=== PATIENT | female | born 1940 | race Caucasian/White ===

== ENCOUNTER 2016-12-08 05:54 | Inpatient (IN) | payer MEDICARE, OTHER ==
--- NOTE | 2016-12-07 16:20 | HP ---
DATE OF ADMISSION: 12/08/2016 This is requested by Dr. Michael Matta. She is scheduled for surgery tomorrow morning for a right total knee replacement scheduled for 12/08/2016. The patient is scheduled for medication technician surgery. Please add this note to her chart. This patient was seen in our office for preop clearance. She was cleared for surgery. We checked on her status today, the day prior to surgery and the patient is stable and is able to proceed with surgery as planned by Dr. Matta. If there are any further questions, please do not hesitate to contact me. Dictated By: CECILIA GIANG/DYANA Conf#: [id number] DID#: [id number]
[~2016-12-08] VITALS: Ht 142.2 cm; Wt 69.0 kg
[2016-12-08] VITALS (23 sets, daily range): BP systolic 69–149; BP diastolic 43–78; PULSE 62–92; RESP 12–19; Ht 142.2 cm; Wt 69.0 kg
[~2016-12-08 05:54] MED LIST: CALC-84 PO; IBUP400T22 PO; TYL500 PO; ZOLP5TAB PO
[2016-12-08] MEDS ORDERED: POLYMYXIN/BACITRACIN 1L IRRIG ONE (07:22)
[2016-12-08] MEDS ORDERED: LIDOCAINE 2% (SDV) 5 ML INJ ONE (07:53)
[2016-12-08] MEDS ORDERED: PROPOFOL 20 ML ONE (07:53)
[2016-12-08] MEDS ORDERED: METOCLOPRAMIDE 10 MG INJ ONE (07:54)
[2016-12-08] MEDS ORDERED: ONDANSETRON 4 MG INJ ONE (07:54)
[2016-12-08] MEDS ORDERED: morphine SULFATE/PF (10 MG/10 ML) INJ ONE (08:04)
[2016-12-08] MEDS ORDERED: CEFAZOLIN 1 GM INJ ONE (08:06)
[2016-12-08] MEDS ORDERED: ATROPINE 1 MG/10 ML SYRINGE ONE (08:38)
[2016-12-08] MEDS ORDERED: EPHEDrine SULFATE 50 MG/5 ML SYG ONE (08:38)
[2016-12-08] MEDS ORDERED: ONDANSETRON 4 MG INJ IV PRN (09:00)
[2016-12-08] MEDS ORDERED: NALOXONE (0.4 MG/ML) INJ IV PRN (09:00)
[2016-12-08] MEDS ORDERED: DIPHENHYDRAMINE 50 MG INJ IV PRN (09:00)
[2016-12-08] MEDS ORDERED: HYDROmorphONE 1 MG/ML SYG IV PRN (09:00)
[2016-12-08] MEDS ORDERED: BUPIVACAINE 0.5% (SDV) 30 ML INJ ONE (09:25)
[2016-12-08] MEDS: CEFAZOLIN 1 GM/50 ML (PMX) 50 ML IVPB SCH ×2 (12:05→20:41)
--- NOTE | 2016-12-08 12:33 | RADRPT ---
PROCEDURE: CR Right Knee CLINICAL INDICATION: Postop total knee TECHNIQUE: AP and lateral portable views were submitted. COMPARISON: None available FINDINGS: Osseous Structures: The components of the total right knee replacement are well seated. The osseous elements appear intact. Join Spaces: The joint spaces are well maintained. No joint effusion is identified. Soft Tissues: 2 surgical drains have been placed and anterior sherron are evident. IMPRESSION: 1. Well seated total right knee replacement. 2. 2 surgical drains have been placed along with anterior sherron. Physician Osiel Date Time Electronically viewed and signed by Pranav Alcantara Physician on 12/08/2016 12:33 RH/
[2016-12-08] MEDS ORDERED: ACETAMINOPHEN 500 MG TAB PO PRN (15:30)
[2016-12-08] MEDS: CALCIUM/VITAMIN D (500/200) TAB PO SCH ×2 (16:00→20:44)
--- NOTE | 2016-12-08 16:32 | HP ---
DATE OF ADMISSION: 12/08/2016 CHIEF COMPLAINT AND HISTORY OF PRESENT ILLNESS: The patient is a 76-year-old female with a history of bilateral knee osteoarthritis. Patient underwent left total knee replacement back in March 2014. The patient is being followed by Dr. Zarate as an outpatient and was referred to Dr. Vinh Matta for continued right knee pain and patient was brought in to hospital today and underwent right tota l knee replacement. The patient does not have any known history of hypertension, diabetes or CHF. No history of ___, no history of CVA. The denied any chest pain and is breathing comfortably. The patient is awake, alert, and responsive and denies any numbness, tingling, or weakness in any extre mity, no abdominal pain, no reported vomiting. No reported cough, wheezing, chest pain or shortness of breath. REVIEW OF SYSTEMS: A total of 10 systems were reviewed and all pertinent positive and negative find ings have been described in the HPI. PAST SURGICAL HISTORY: As stated above. ALLERGIES: NONE. SOCIAL HISTORY: No smoking, no alcohol. FAMILY HISTORY: Noncontributory. MEDICATIONS PRIOR TO ADMISSION: 1. Tylenol. 2. Ibuprofen. 3. Ambien. 4. Calcium and vitamin D. PHYSICAL EXAMINATION: GENERAL: The patient is conscious, awake, alert. VITAL SIGNS: Temperature 97.6, pulse 71, respirations 18, blood pressure 149/69, O2 saturation 98% on 2 liters nasal cannula. HEENT: Atraumatic, normocephalic. Conjunctivae and lids normal. Oropharynx clear. NECK: No mass, lymph node or thyromegaly. CHEST: Fairly clear. No use of accessory muscles. CARDIOVASCULAR: S1, S2 normal. No murmur. ABDOMEN: Soft, nondistended, nontender. EXTREMITIES: No pedal edema. Pedal pulses palpable. SKIN: Without acute rash. NEUROLOGIC: The patient is awake, alert, follows simple commands. No gross focal deficit, although detailed neurological examination was deferred due to recent surgery. IMPRESSION: 1. Right knee osteoarthritis, status post right total knee replacement. 2. History of left knee osteoarthritis status post left total knee replacement back in 2013. PLAN: Patient admitted on medical floor. Patient will be started on clear liquid diet, which will be advanced as tolerated. The patient will receive IV cefazolin as per protocol. The patient will be given IV ____ and has been started on aspirin 325 mg b.i.d. for DVT prophylaxis. The patient richardson s epidural catheter. The patient is getting epidural Duramorph for pain control. The patient also on Percocet q.4h. p.r.n. for pain control. The patient will have followup labs in the morning. We will continue to follow her postoperatively. Dictated By: AGUSTIN HILL/DYANA Conf#: [id number] DID#: [id number] CC: NETTE MATTA MD;*EndCC*
[2016-12-08] MEDS: LACTATED RINGER'S 1,000 ML IV SCH (17:09)
[2016-12-08] MEDS: morphine 2 MG INJ IV PRN (19:07)
[2016-12-08] MEDS: ZOLPIDEM 5 MG TAB PO PRN (20:44)
[2016-12-08] MEDS: OXYCODONE/ACETAMINOPHEN (5/325) TAB PO PRN (22:37)
[2016-12-09] MEDS: OXYCODONE/ACETAMINOPHEN (5/325) TAB PO PRN ×4 (02:14→16:57)
[2016-12-09] MEDS: morphine 2 MG INJ IV PRN (03:37)
[2016-12-09] MEDS: CEFAZOLIN 1 GM/50 ML (PMX) 50 ML IVPB SCH (04:43)
[2016-12-09] MEDS: LACTATED RINGER'S 1,000 ML IV SCH ×2 (04:45)
[2016-12-09 05:12] LABS: ADD SCAN DIFF NO
[2016-12-09 05:35] LABS: POTASSIUM 3.6 mmol/L (3.5-5.1)
[2016-12-09 05:38] LABS: CREATININE 0.6 mg/dl (0.44-1.00)
[2016-12-09 05:39] LABS: BASOPHILS % 0.3 % (0.0-2.0); CALCIUM 7.9 mg/dl (8.4-10.2); EOSINOPHILS # 0.1 10^3/ul (0.0-0.5); HEMATOCRIT 32.4 % (37.0-47.0); HEMOGLOBIN 10.2 g/dl (12.0-16.0); LYMPHOCYTES # 1.5 10^3/ul (0.8-2.9); LYMPHOCYTES % 17.2 % (15.0-51.0); MEAN CORPUSCULAR HEMOGLOBIN 28.8 pg (29.0-33.0); MEAN CORPUSCULAR HGB CONC 31.5 g/dl (32.0-37.0); MEAN CORPUSCULAR VOLUME 91.5 fl (82.0-101.0); MEAN PLATELET VOLUME 11.1 fl (7.4-10.4); MONOCYTE # 0.8 10^3/ul (0.3-0.9); MONOCYTES % 9.7 % (0.0-11.0); NEUTROPHIL # 6.2 10^3/ul (1.6-7.5); NEUTROPHILS % 71.5 % (39.0-77.0); PLATELET COUNT 177 10^3/UL (140-415); RED BLOOD COUNT 3.54 10^6/ul (4.20-5.40); RED CELL DISTRIBUTION WIDTH 13.2 % (11.5-14.5); WHITE BLOOD COUNT 8.7 10^3/ul (4.8-10.8)
[2016-12-09 07:50] VITALS: BP 146/70; RESP 18
[2016-12-09] MEDS: DOCUSATE SODIUM 100 MG CAP PO SCH ×2 (08:57→20:09)
[2016-12-09] MEDS: ASPIRIN (EC) 325 MG TAB PO SCH ×2 (08:57→20:08)
[2016-12-09] MEDS: CALCIUM/VITAMIN D (500/200) TAB PO SCH (08:57)
--- NOTE | 2016-12-09 17:07 | PN ---
Date/Time of Note Date/Time of Note DATE: 12/09/16 TIME: 17:05 Assessment/Plan VTE Prophylaxis VTE Prophylaxis Intervention: other Lines/Catheters IV Catheter Type (from Nrsg): Peripheral IV Urinary Cath still in place: Yes Assessment/Plan Assessment/Plan 1. Right knee osteoarthritis, status post right total knee replacement. - per ortho - epidural Duramorph for pain control. - Percocet q.4h. p.r.n. for pain control. 2. History of left knee osteoarthritis status post left total knee replacement back in 2013. 3. aspirin 325 mg b.i.d. for DVT prophylaxis. MARGIE Shepherd Subjective 24 Hr Interval Summary Eyes: no complaints ENT: no complaints Respiratory: no complaints Cardiovascular: no complaints Gastrointestinal: no complaints Genitourinary: no complaints Musculoskeletal: bone/joint pain Skin: no complaints Neurologic: no complaints Endocrine: no complaints Exam/Review of Systems Vital Signs Vitals Vital Signs Date Time Temp Pulse Resp B/P Pulse Ox O2 Delivery O2 Flow Rate FiO2 12/09/16 07:50 98.6 72 18 146/70 96 12/08/16 20:00 Nasal Cannula 2.0 Intake and Output 12/08/16 12/08/16 12/09/16 15:00 23:00 07:00 Intake Total 2700 ml 300 ml 2410 ml Output Total 1700 ml 400 ml 1310 ml Balance 1000 ml -100 ml 1100 ml Exam Constitutional: alert, oriented, well developed Psych: nl mood/affect Head: atraumatic Eyes: EOMI ENMT: nl external ears & nose Respiratory: clear to auscultation Cardiovascular: nl pulses Gastrointestinal: non-tender, soft Musculoskeletal: other Extremities: normal pulses Neurological: nl mental status, nl speech Skin: other Lymph: nontender Results Result Diagram: 12/09/16 0416 12/09/16 0416 Results 24 hrs Laboratory Tests Test 12/09/16 04:16 Anion Gap 11 Basophils # 0.0 Basophils % 0.3 Blood Urea Nitrogen 10 Calcium Level 7.9 L Carbon Dioxide Level 28 Chloride Level 102 Creatinine 0.60 Eosinophils # 0.1 Eosinophils % 1.0 Glucose Level 95 Hematocrit 32.4 L Hemoglobin 10.2 L Lymphocytes # 1.5 Lymphocytes % 17.2 Mean Corpuscular Hemoglobin 28.8 L Mean Corpuscular Hemoglobin Concent 31.5 L Mean Corpuscular Volume 91.5 Mean Platelet Volume 11.1 H Monocytes # 0.8 Monocytes % 9.7 Neutrophils # 6.2 Neutrophils % 71.5 Nucleated Red Blood Cells # 0.0 Nucleated Red Blood Cells % 0.0 Platelet Count 177 Potassium Level 3.6 Red Blood Count 3.54 L Red Cell Distribution Width 13.2 Sodium Level 137 White Blood Count 8.7 Medications Medications Current Medications Aspirin (Ecotrin) 325 mg BID PO Last administered on 12/09/16 08:57; Admin Dose 325 MG; Start 12/09/16 at 09:00 Docusate Sodium 200 mg 200 mg BID PO Last administered on 12/09/16 08:57; Admin Dose 200 MG; Start 12/09/16 at 09:00; Stop 12/12/16 at 08:59 Lactated Ringer's (Lr) 1,000 ml @ 80 mls/hr [id number] IV Last administered on 04:45; Admin Dose 80 MLS/HR; Start 12/08/16 at 11:30 Oxycodone/ Acetaminophen (Percocet (5/ 325)) 1 tab Q4H PRN PO PAIN Last administered on 12/09/16 16:57; Admin Dose 1 TAB; Start 12/08/16 at 11:30 Zolpidem Tartrate (Ambien) 5 mg HS PRN PO INSOMNIA Last administered on 20:44; Admin Dose 5 MG; Start 12/08/16 at 15:30 Calcium/Vitamin D (Oyster Shell/ Vit-D (500/200)) 1 tab DAILY PO Last administered on 12/09/16 08:57; Admin Dose 1 TAB; Start 12/08/16 at 16:00 Acetaminophen (Tylenol Tab) 500 mg Q4H PRN PO PAIN AND OR ELEVATED TEMP; Start 12/08/16 at 15:30 MISTY ENRIQUEZ Dec 09, 2016 17:06
[2016-12-09 19:25] VITALS: BP 124/58; RESP 18
[2016-12-09] MEDS: ZOLPIDEM 5 MG TAB PO PRN (20:08)
[2016-12-10] MEDS: OXYCODONE/ACETAMINOPHEN (5/325) TAB PO PRN ×5 (03:51→20:52)
[2016-12-10 05:04] LABS: ADD SCAN DIFF NO
[2016-12-10 05:14] LABS: BASOPHILS % 0.2 % (0.0-2.0); EOSINOPHILS # 0.1 10^3/ul (0.0-0.5); EOSINOPHILS % 0.4 % (0.0-7.0); HEMOGLOBIN 10.1 g/dl (12.0-16.0); LYMPHOCYTES # 1.7 10^3/ul (0.8-2.9); MEAN CORPUSCULAR HGB CONC 32.6 g/dl (32.0-37.0); MEAN CORPUSCULAR VOLUME 89.1 fl (82.0-101.0); MEAN PLATELET VOLUME 11.2 fl (7.4-10.4); MONOCYTE # 0.9 10^3/ul (0.3-0.9); MONOCYTES % 7.6 % (0.0-11.0); NEUTROPHIL # 9.2 10^3/ul (1.6-7.5); NEUTROPHILS % 77.4 % (39.0-77.0); PLATELET COUNT 173 10^3/UL (140-415); RED BLOOD COUNT 3.48 10^6/ul (4.20-5.40); RED CELL DISTRIBUTION WIDTH 12.8 % (11.5-14.5); WHITE BLOOD COUNT 11.9 10^3/ul (4.8-10.8)
[2016-12-10 05:36] LABS: POTASSIUM 3.4 mmol/L (3.5-5.1)
[2016-12-10 05:38] LABS: CREATININE 0.55 mg/dl (0.44-1.00)
[2016-12-10 05:39] LABS: CALCIUM 8.7 mg/dl (8.4-10.2)
[2016-12-10 08:14] VITALS: BP 140/63; RESP 20
[2016-12-10] MEDS: ASPIRIN (EC) 325 MG TAB PO SCH ×2 (09:05→20:51)
[2016-12-10] MEDS: DOCUSATE SODIUM 100 MG CAP PO SCH ×2 (09:05→20:52)
[2016-12-10] MEDS: CALCIUM/VITAMIN D (500/200) TAB PO SCH (09:05)
--- NOTE | 2016-12-10 15:34 | OPR ---
DATE OF OPERATION: 12/08/2016 PREOPERATIVE DIAGNOSIS: Severe advanced arthritis of right knee, failed to respond to nonsurgical management. POSTOPERATIVE DIAGNOSIS: Severe advanced arthritis of right knee, failed to respond to nonsurgical management. OPERATION PERFORMED: Arthrotomy of right knee, excision of remnant of menisci, excision of osteophytes, and performing total knee replacement of right knee using size 3 tibial component size E, posterior stabilized femoral component, 10 -mm articular surface and 29 mm in diameter, 8-mm thickness patellar component. All 3 components were cemented. SURGEON: Nette Matta MD GLOBAL SUPPLY CHAIN VICE PRESIDENT: ROZ Stout ANESTHESIOLOGIST: Dr. Landaverde ANESTHESIA: Spinal plus general. DETAIL: She was brought to the operating room, placed in supine position. Intravenous anesthesia administered by anesthesiologist. Patient also received intravenous 2 grams Ancef. Anesthesiologist administered spinal anesthesia and general. She was placed back in supine position. Tourniquet cuff was placed in proximal segment of right thigh. Arrangements for surgery were done, including placing intermittent calf pump on the left leg and placing block and side posts to help us with positioning of the knee throughout the procedure. Following prepping and draping of right lower extremity with tourniquet on the upper right thigh, exsanguination of the knee was done using elastic Esmarch bandage. Pressure was 270 mm. Knee was kept in about 35 to 40 degree of position. She had flexion contracture of right knee of approximately 15 degrees , the flexion range of 95. Knee was stable. Marking pen was used to outline line of incision anterior from midpoint of patella to approximately 2 fingerbreadths above knee cap and down to approximately 2 or 3 fingerbreadths below joint line. Incision was made. Bleeders were controlled. Soft tissue skin and subcutaneous was elevated and extended posteromedially and posterolaterally. Medial parapatellar arthrotomy was done. Patella was reversed. There was approximately 20 to 25 mL of clear yellowish fluid. Washing was done. Knee was inspected. She had advanced arthritis with significant marginal osteophytes of patella. There were also significant marginal osteophytes of femoral condyle and as subsequently observed in the region of patella. Medial joint surface of the femur was completely worn out to subchondral level. Preparation was done to do an osteotomy in following order. A significant portion of anterior fat pad and cruciate ligament were removed. Osteophytes were removed. Releasing was done medially and posteromedially to provide us with full extension while the medial collateral ligament was protected with the Z retractor. Remnant of medial and lateral meniscus was removed. A significant portion of medial meniscus was subluxed posteromedially. Following preparation of the joint, area was cleared for osteotomies. Osteotomy in upper tibia was done while the tibia was subluxed. This was done with use of extramedullary method, removing roughly 1.2 cm of lateral and approximately 4-5 mm of medial tibial plateau. Then, preparation was made to do an intramedullary technique to excise rough anterior distal cut of the femur. By measurement, we chose to use secondary cuts for distal femur to accept size E. This was done after excision of distal femur with intramedullary technique; 5-mm angle with mechanical access. Following completion of cuts, again, additional releases required posteromedially to fit comfortably a 10-mm spacer in extension and flexion. Subsequently, a chamfer cut was used to fit size E right femoral component in place. Following completion of cutting for the femur, with the knee subluxed, upper tibia was finished to accept a stemmed tibial component precoat size 3, which was matching quite well with the femoral component. Patella was measured and was 22 mm in anterior-posterior diameter. Reaming in preparation of patella tibia was done to accept size 29-mm diameter, 8-mm thickness patellar component. Following completion of all surfaces, test component was placed. Knee was stable, had full mobility. Extensive irrigation of all bony surfaces was done, and femoral canal was packed with cancellous bone graft. I failed to mention that also three were done in both condyles of distal femur at the time of doing chamfer cuts. Two batches of methyl methacrylate cement were mixed. This was [place] bone cement and as there was malleable physical condition, cementing of permanent components were done. Initially, femoral component was placed and packed into position. Excess cement was removed. Knee was brought into full extension after placing of tibial component and 10-mm liner, and hyperextension pressurized cement on the femoral and tibial side. Excess cement on tibia was removed. I did cementing of patella component, pressurized in position with a special clamp. Excess cement was removed. Following maturity of cement, excess small component merging were chiseled out. Irrigation was done. Note, 10-mm articular surface then was assembled in position, secured. Knee was washed out, and tourniquet was deflated, and all small bleeders were controlled. We did not encounter any arterial bleeders. Tourniquet time was 90 minutes plus, minus. Following completion of controlling bleeders, closure was done in layers. Joint was closed including femoral side and tibial side and quadriceps tendon with nonabsorbable suture material [id number]. Two Hemovac drains were placed into the wound at the last moment before final closure on the joint. Subcutaneous tissue was assembled together again, closed with 2-0 and 3-0 Vicryl. The skin was closed with metallic sherron. Ha-type dressing was applied. She had no intra- or postop complications. Knee immobilizer was placed before transferring patient to recovery room in satisfactory condition. Dictated By: NETTE MATTA MD, SA/DYANA Conf#: [id number] DID#: [id number]
[2016-12-10 20:14] VITALS: BP 114/56; RESP 18
[2016-12-10] MEDS: ZOLPIDEM 5 MG TAB PO PRN (20:52)
[2016-12-11 07:39] VITALS: BP 135/64; RESP 19
[2016-12-11] MEDS: OXYCODONE/ACETAMINOPHEN (5/325) TAB PO PRN (08:53)
[2016-12-11] MEDS: DOCUSATE SODIUM 100 MG CAP PO SCH ×2 (08:53→20:07)
[2016-12-11] MEDS: CALCIUM/VITAMIN D (500/200) TAB PO SCH (08:53)
[2016-12-11] MEDS: ASPIRIN (EC) 325 MG TAB PO SCH ×2 (08:53→20:07)
[2016-12-11 12:03] LABS: ADD SCAN DIFF NO
[2016-12-11 12:09] LABS: BASOPHILS % 0.4 % (0.0-2.0); EOSINOPHILS # 0.1 10^3/ul (0.0-0.5); EOSINOPHILS % 1.3 % (0.0-7.0); HEMATOCRIT 32.2 % (37.0-47.0); HEMOGLOBIN 10.4 g/dl (12.0-16.0); LYMPHOCYTES # 2.1 10^3/ul (0.8-2.9); MEAN CORPUSCULAR HEMOGLOBIN 29.1 pg (29.0-33.0); MEAN CORPUSCULAR HGB CONC 32.3 g/dl (32.0-37.0); MEAN CORPUSCULAR VOLUME 90.2 fl (82.0-101.0); MEAN PLATELET VOLUME 10.8 fl (7.4-10.4); MONOCYTE # 0.7 10^3/ul (0.3-0.9); MONOCYTES % 6.7 % (0.0-11.0); NEUTROPHIL # 7.4 10^3/ul (1.6-7.5); NEUTROPHILS % 71.2 % (39.0-77.0); PLATELET COUNT 215 10^3/UL (140-415); RED BLOOD COUNT 3.57 10^6/ul (4.20-5.40); WHITE BLOOD COUNT 10.4 10^3/ul (4.8-10.8)
[2016-12-11 12:13] LABS: POTASSIUM 3.3 mmol/L (3.5-5.1)
[2016-12-11 12:16] LABS: CREATININE 0.61 mg/dl (0.44-1.00)
[2016-12-11] MEDS ORDERED: POTASSIUM CHLORIDE 20 MEQ POWDER FOR ORAL SOLN PO ONE (14:30)
[2016-12-11] MEDS: HYDROCODONE/APAP (5/325) TAB PO PRN ×2 (15:41→20:08)
--- NOTE | 2016-12-11 15:57 | DS ---
DATE OF ADMISSION: 12/08/2016 DATE OF DISCHARGE: 12/11/2016 FINAL DIAGNOSES: 1. Severe advanced arthritis of the right knee, status post right total knee replacement. 2. History of left knee osteoarthritis status post left total knee replacement in 2013. BRIEF HISTORY: The patient is a 76-year-old female with a history of bilateral knee osteoarthritis. The patient underwent left total knee replacement back in March 2014. The patient is being followe d by primary care physician, Dr. Zarate as an outpatient and was referred to Dr. Matta, orthopedic surgery for continued right knee pain. Patient was brought to the hospital and underwent right tota l knee replacement and was admitted for further evaluation and management. HOSPITAL COURSE: The patient was given IV cefazolin. The patient was started on aspirin 325 mg p.o . b.i.d. for DVT prophylaxis. The patient was getting epidural Duramorph for pain control and start ed on Percocet. Patient's condition improved. The patient started physical therapy; however, still had significant amount of right knee pain and continues to be at risk for fall. The patient's pain is well controlled with [place] at this point and patient denies any chest pain, denies any shortness of breath, denies any nausea, vomiting. The patient will be discharged to [facility] for further wound care and physical therapy. The patient was getting potassium repl acement for potassium 3.3. The patient will be discharged to [facility]. CONDITION ON DISCHARGE: Hemodynamically stable. ACTIVITY: As patient tolerates. DIET: Regular diet. DISCHARGE MEDICATIONS: 1. Tylenol 500 mg p.o. every 8 hours p.r.n. for mild pain. 2. Aspirin 325 mg p.o. b.i.d. 3. Oyster shell calcium with vitamin D 1 tablet daily. 4. Colace 200 mg p.o. b.i.d. 5. [place] 5/325 mg p.o. 1 tablet every 4 hours p.r.n. for pain. 6. Ambien 5 mg p.o. p.r.n. for insomnia. RECOMMENDATIONS: The patient is instructed to follow up with Dr. Matta in orthopedic surgery consu ltation in 1 to 2 weeks, BMP in 3 days. Interdisciplinary plan of care at [facility]. Interdisciplinary plan of care was established for this patient. Plan of care was discussed with Dr Neha Henry. Dictated By: RAHUL RUGGIERO ASSISTANT BANQUET MANAGER for AGUSTIN HENRY MD SR/NTS Conf#: [id number] DID#: [id number]
--- NOTE | 2016-12-11 16:20 | PN ---
DATE: 12/10/2016 SUBJECTIVE: The patient's postoperative pain has improved. The patient denies any chest pain and i s breathing comfortably, no reported vomiting, no reported fever or chills. Patient's O2 sats have been in the 90s on a couple of liters of supplemental oxygen and no reported wheezing, no reported c ough. PHYSICAL EXAMINATION: GENERAL: The patient is awake, alert. VITAL SIGNS: Temperature 98.4, pulse 87, respirations 20, blood pressure of 140/63, O2 sat 91 to 95 % on 2 liters nasal cannula. HEENT: Conjunctivae and lids normal. Oropharynx clear. NECK: Supple. No mass, no thyromegaly. CHEST: Fairly clear. No use of accessory muscles. CARDIOVASCULAR: S1, S2 normal. No murmur. ABDOMEN: Soft, nondistended, nontender. No palpable mass. No pulsatile mass. EXTREMITIES: No ankle edema. Pedal pulses palpable. SKIN: Without acute rash. NEUROLOGIC: The patient is awake, alert, fairly oriented with no gross focal deficit. LABORATORY DATA: WBC 11.9, hemoglobin 10.1, platelets 173. Sodium 139, potassium 3.4, BUN 6, creat inine 0.5, glucose 118. IMPRESSION: Right knee osteoarthritis status post total right knee replacement. The patient was se en by physical therapy and recommendation is to discharge to shelter facility. Continue CPM machine. Continue aspirin 325 b.i.d. for deep venous thrombosis prophylaxis. Urine culture so far has been negative. The patient is status post preop. PLAN: Further recommendation depends on hospital course. Dictated By: AGUSTIN HILL/DYANA Conf#: [id number] DID#: [id number]
[2016-12-11 20:15] VITALS: BP 122/62; RESP 18
--- NOTE | 2016-12-12 12:05 | DS ---
DATE OF ADMISSION: 12/08/2016 DATE OF DISCHARGE: 12/11/2016 HOSPITAL COURSE: The patient was admitted to [facility] for surgical management of severe arthritis of the right knee which has not responded to any conservative management. She was admitted on 12/08/2016 after being cleared for surgery by instructional technology coach, ____ , Dr. Zarate. COURSE IN THE HOSPITAL: She was taken to surgery on 12/08/2016 and underwent a total knee replacement on the right knee. Intraoperative finding indicated that she had very severe arthritis of the right knee with worn out femoral condyle, significant marginal osteophytes and significant arthritis of patellofemoral joint. She had no intra postop complications. She received intraoperative antibiotic treatment. Postoperatively she had no complications and on the patient's postoperative day Hemovac and Resendez catheter were removed. She was ambulated weight bearing on the right and started on CPM 0 to 60 degrees and also recommended to have a soft roll under her heel 3 times a day for 20 to 30 minutes between CPM applications, to achieve full extension of the knee. At time of discharge, her hemoglobin was 10.1. Potassium was 3.6. Wound was healing well. No calf tenderness was present. The patient received also ice treatment postoperatively. Arrangement has been made for her to be transferred to [facility] for postoperative recovery with recommendation of remaining on aspirin 325 mg b.i.d. continuation use of CPM, continuation of physical therapy for ambulation and medical care through her private physician. Also recommended to return to the office for reevaluation roughly 10 to 12 days after discharge. DISCHARGE DIAGNOSIS: Severe arthritis of right knee total, knee replacement right side. CONDITION ON DISCHARGE: Improved. Dictated By: NETTE MENDOZA MD, SA/DYANA Conf#: [id number] DID#: [id number] CLOTILDE
== END 2016-12-11 20:50 | DRG 470 ==
LOC: REC 05:54 → MS1 14:54
PROVIDERS: ADMIT Internal Medicine; ATTEND Internal Medicine
PROC: 0SRC0J9 Replacement of Right Knee Joint with Synthetic Substitute, Cemented, Open Approach (ICD-10-PCS; principal; 2016-12-08 08:00)
DX: M17.11 Unilateral primary osteoarthritis, right knee (principal); Z96.652 Presence of left artificial knee joint
CPT/HCPCS: 73560; 80048; 85025; 86850; 86900; 86901; 86920; 87086; 88304; 88311; 97110; 97116; 97162; 97530; J0461; J0690; J1170; J2270; J2274; J2405; J2765; J7120

== ENCOUNTER 2017-11-28 06:31 | Day surgery (SDC) | END 2017-11-28 10:00 | disposition home or self-care (01) ==

== ENCOUNTER 2018-01-01 11:45 | Day surgery (SDC) | END 2018-01-01 17:40 | disposition home or self-care (01) ==